=== PATIENT | female | born 1940 | race Hispanic/Latino ===

== ENCOUNTER 2019-07-22 06:56 | Day surgery (SDC) | payer MEDICARE ==
[~2019-07-22] VITALS: Ht 154.9 cm; Wt 56.7 kg
[~2019-07-22 06:56] MED LIST: CARB10DR2 OP; SODIUM CHLORIDE 0.9% 1000ML 1,000 ML IV ONE
[2019-07-22 08:09] VITALS: BP 117/65
[2019-07-22] MEDS ORDERED: LOTE10DR OU (08:26)
[2019-07-22 10:05] VITALS: BP 89/40
[2019-07-22 10:10] VITALS: BP 99/51
[2019-07-22 10:15] VITALS: BP 104/66
[2019-07-22 10:20] VITALS: BP 127/69
[2019-07-22 10:30] VITALS: BP 130/72
== END 2019-07-22 10:40 | disposition home or self-care (01) ==
LOC: ENDO 06:56 → DAH 06:56 → ENDO 10:40
PROVIDERS: ATTEND Internal Medicine Gastroenterology
DX: R19.4 Change in bowel habit (principal); D12.2 Benign neoplasm of ascending colon; K57.30 Diverticulosis of large intestine without perforation or abscess without bleeding; Z90.710 Acquired absence of both cervix and uterus; Z98.890 Other specified postprocedural states; Z79.899 Other long term (current) drug therapy; Z88.1 Allergy status to other antibiotic agents; Z88.5 Allergy status to narcotic agent; Z88.8 Allergy status to other drugs, medicaments and biological substances
CPT/HCPCS: 45380; 88305; A4215; A4221; A4222; A4223; A4606; A4615; A4663; J7030